=== PATIENT | female | born 1935 | race Hispanic/Latino ===

== ENCOUNTER → 2018-10-21 | Outpatient (CLI) | payer OTHER | END | disposition home or self-care (01) | LOC: SHCH 15:41 | PROVIDERS: ATTEND Internal Medicine Cardiovascular Disease | DX: Z01.810 Encounter for preprocedural cardiovascular examination (principal); R94.31 Abnormal electrocardiogram [ECG] [EKG]; I35.8 Other nonrheumatic aortic valve disorders | CPT/HCPCS: 93306 ==